=== PATIENT | female | born 1945 | race Caucasian/White ===

== ENCOUNTER 2016-11-28 16:15 | Emergency (ER) | payer OTHER ==
[~2016-11-28] VITALS: Ht 167.6 cm; Wt 71.0 kg
[~2016-11-28 16:15] MED LIST: AMITRIPTYLINE H10 M1 NG; AMLODIPINE BESY10 MG PO; APRESOLINE100 MG PO; APRESOLINE25 MG PO; ASPIR 8181 M1 PO; AZITHROMYCIN250 MG PO; CARDIZEM PO; CATAPRES0.1 MG G-TUBE; CATAPRES0.2 MG PO; CIPROFLOXACIN500 M1 PO; CLONIDINE HCL0.1 MG; CLONIDINE HCL0.1 MG PO; COZAAR50 MG PO; CYCLOBENZAPRINE10 MG PO; DURAGESIC12 MCG TD; ELAVIL10 MG PO; GABAPENTIN300 MG PO; HYDRALAZINE HCL50 MG PO; K-DUR20 MEQ PO; LISINOPRIL20 MG PO; METOCLOPRAMIDE10 MG PO; METRONIDAZOLE500 MG PO; MOTRIN800 MG PO; NIFEDIAC CC90 MG PO; NORVASC10 MG PO; NORVASC5 MG PO; OMEPRAZOLE20 MG PO; OMEPRAZOLE40 M1 PO; ONDANSETRON HCL4 MG PO; OXYCODONE HCL10 MG PO; OXYCONTIN20 MG PO; PERCOCET 10/1 TABLET; PRAVACHOL40 MG PO; PRINIVIL10 MG PO; PRINIVIL20 MG; PRINIVIL20 MG PO; REPAN 50-325-41 EAC1 PO; SIMVASTATIN80 M1 PO; TESSALON PERLE100 MG PO; TRICOR145 MG PO; TYLENOL EXTRA500 MG PO; ZESTRIL,PRINIVI20 MG PO; ZOFRAN4 MG PO; ZUPLENZ4 MG PO
[2016-11-28] MEDS ORDERED: ZOFRAN4 MG PO (16:58)
[2016-11-28] MEDS ORDERED: NEURONTIN300 MG PO (17:00)
[2016-11-28 18:24] LABS: HEMATOCRIT 36.8 % (36.0-46.0); MCH 29.4 PG (29.0-34.0); MCHC 32.6 G/DL (30.0-36.0); MCV 90.2 FL (83-99); MEAN PLAT.VOLUME 10.4 uM^3 (9.5-12.4); PLATELET COUNT 131 K/uL (156-360); RBC DIS.WIDTH-CV 14.4 % (11.8-14.6); RED BLOOD COUNT 4.08 M/uL (3.80-5.20); WHITE BLOOD COUNT 7.7 K/uL (4.1-10.2)
[2016-11-28 18:35] LABS: CHLORIDE 108 mEq/L (99-109); POTASSIUM 4.1 mEq/L (3.7-5.4); SODIUM 139 mEq/L (136-147)
[2016-11-28 18:37] LABS: GLUCOSE 109 mg/dL (70-99); INTER. NORMALIZED RATIO 1.1; PROTHROMBIN TIME 11.4 (9.2-11.2); PTT 30.8 (25-32)
[2016-11-28 18:38] LABS: ANION GAP 5 MEQ/L (2-14)
[2016-11-28 18:41] LABS: GFR ESTIMATE (CALCULATED) 58 mL/min/; UREA NITROGEN (BUN) 12 mg/dL (9-23)
[2016-11-28] MEDS ORDERED: ULTRAM50 MG PO (19:47)
[2016-11-28 20:11] VITALS: BP 145/85
== END 2016-11-28 20:18 | disposition home or self-care (01) ==
LOC: EME 16:15
PROVIDERS: Emergency Medicine
PROC: 2W3QX1Z Immobilization of Right Lower Leg using Splint (ICD-10-PCS; principal; 2016-11-28)
DX: M79.661 Pain in right lower leg (principal); R60.0 Localized edema; Z91.81 History of falling; I10 Essential (primary) hypertension
CPT/HCPCS: 73610; 80048; 85027; 85610; 85730; 93971; 99281; 99284

== ENCOUNTER 2016-11-29 10:09 | Emergency (ER) | payer OTHER ==
[~2016-11-29] VITALS: Ht 167.6 cm; Wt 70.4 kg
[~2016-11-29 10:09] MED LIST changes: +NEURONTIN300 MG PO; +ULTRAM50 MG PO
[2016-11-29 17:05] VITALS: BP 200/98
== END 2016-11-29 17:05 | disposition home or self-care (01) ==
LOC: EME 10:09 → RME 10:09
DX: M79.604 Pain in right leg (principal); I10 Essential (primary) hypertension; W18.30XD Fall on same level, unspecified, subsequent encounter; Z88.6 Allergy status to analgesic agent; Z88.0 Allergy status to penicillin
CPT/HCPCS: 73700; 99281; 99284

== ENCOUNTER 2017-06-09 11:08 | Inpatient (IN) | payer OTHER ==
[~2017-06-09] VITALS: Ht 167.6 cm; Wt 74.5 kg
[~2017-06-09 11:08] MED LIST changes: -OMEPRAZOLE40 M1 PO
[2017-06-09 12:28] LABS: EOSINOPHIL (%) 0.5 % (0-5); EOSINOPHIL COUNT 0.1 K/uL (0-0.3); HEMATOCRIT 44.3 % (36.0-46.0); IMMATURE GRANULOCYTE (%) 0.5 % (0.0-0.7); IMMATURE GRANULOCYTE COUNT 0.1 K/uL; MCH 28.4 PG (29.0-34.0); MCHC 31.8 G/DL (30.0-36.0); MCV 89.3 FL (83-99); MEAN PLAT.VOLUME 10.1 uM^3 (9.5-12.4); MONOCYTE (%) 9.3 % (3-12); NEUTROPHIL (%) 71.4 % (45-76); PLATELET COUNT 235 K/uL (156-360); RBC DIS.WIDTH-CV 14.9 % (11.8-14.6); RBC DIS.WIDTH-SD 48.8 % (39-53); RED BLOOD COUNT 4.96 M/uL (3.80-5.20); WHITE BLOOD COUNT 11.1 K/uL (4.1-10.2)
[2017-06-09 12:37] LABS: CHLORIDE 102 mEq/L (99-109); POTASSIUM 5.1 mEq/L (3.7-5.4); SODIUM 137 mEq/L (136-147)
[2017-06-09 12:38] LABS: GLUCOSE 109 mg/dL (70-99)
[2017-06-09 12:40] LABS: ANION GAP 11 MEQ/L (2-14)
[2017-06-09 12:42] LABS: GFR ESTIMATE (CALCULATED) 19 mL/min/
[2017-06-09 12:43] LABS: UREA NITROGEN (BUN) 54 mg/dL (9-23)
[2017-06-09 15:19] LABS: TROP-I INTERPRETATION NEGATIVE; TROPONIN-I < 0.01 ng/mL (0.0-0.30)
[2017-06-09] MEDS ORDERED: OXYCODONE HCL10 MG PO (15:25)
[2017-06-09] MEDS ORDERED: APRESOLINE50 MG PO (15:36)
[2017-06-09] MEDS ORDERED: OMEPRAZOLE40 M1 PO (15:36)
[2017-06-09 17:33] LABS: TOTAL CK 4601 IU/L (1-294)
[2017-06-09 17:35] LABS: CREATINE KINASE 4601 IU/L (1-294)
[2017-06-09 17:59] LABS: CK-MB 9.3 ng/mL (0.0-4.9)
[2017-06-09 18:08] VITALS: BP 181/79
[2017-06-09 20:31] LABS: ADD MIUA? YES; BILIRUBIN NEGATIVE; BLOOD MODERATE; COLOR YELLOW ((YELLOW)); GLUCOSE (STRIP) NEGATIVE; KETONES NEGATIVE; LEUKOCYTES MODERATE; NITRITE NEGATIVE; PROTEIN (STRIP) NEGATIVE; SPECIFIC GRAVITY 1.014 (1.000-1.030); UROBILINOGEN 0.2 MG/DL (0.2-1.0)
[2017-06-09 20:56] LABS: RED BLOOD CELLS 0-5 /HPF (0-5); WHITE BLOOD CELLS 30-40 /HPF (0-5)
[2017-06-09 20:57] LABS: BACTERIA 3+ /HPF; CASTS NONE SEEN /LPF; CRYSTALS NONE SEEN; EPITHELIAL CELLS 1+ /HPF; MUCUS NONE SEEN /LPF
[2017-06-09 21:08] LABS: TROP-I INTERPRETATION NEGATIVE; TROPONIN-I < 0.01 ng/mL (0.0-0.30)
[2017-06-10] VITALS (8 sets, daily range): BP systolic 140–238; BP diastolic 67–102
[2017-06-10 04:28] LABS: CHLORIDE 109 mEq/L (99-109); POTASSIUM 4.8 mEq/L (3.7-5.4); SODIUM 139 mEq/L (136-147)
[2017-06-10 04:29] LABS: GLUCOSE 119 mg/dL (70-99)
[2017-06-10 04:31] LABS: ANION GAP 8 MEQ/L (2-14)
[2017-06-10 04:34] LABS: UREA NITROGEN (BUN) 33 mg/dL (9-23)
[2017-06-10 04:36] LABS: TOTAL CK 1775 IU/L (1-294)
[2017-06-10 04:38] LABS: TROP-I INTERPRETATION NEGATIVE; TROPONIN-I < 0.01 ng/mL (0.0-0.30)
[2017-06-10 04:42] LABS: CREATINE KINASE 1775 IU/L (1-294); GFR ESTIMATE (CALCULATED) 58 mL/min/
[2017-06-10 04:51] LABS: CK-MB 2.4 ng/mL (0.0-4.9)
[2017-06-11 00:39] VITALS: BP 118/57
[2017-06-11 04:20] VITALS: BP 172/78
[2017-06-11 07:35] VITALS: BP 180/80
[2017-06-11 07:53] LABS: EOSINOPHIL (%) 0.4 % (0-5); HEMATOCRIT 37.4 % (36.0-46.0); IMMATURE GRANULOCYTE (%) 0.5 % (0.0-0.7); INSTRUMENT ABS NEUTROPHIL CT 6.2 K/uL; LYMPHOCYTE COUNT 1.4 K/uL (1.0-2.8); MCH 28.1 PG (29.0-34.0); MCHC 31.8 G/DL (30.0-36.0); MCV 88.4 FL (83-99); MEAN PLAT.VOLUME 10.7 uM^3 (9.5-12.4); MONOCYTE (%) 5.7 % (3-12); MONOCYTE COUNT 0.5 K/uL (0-0.8); NEUTROPHIL COUNT 6.2 K/uL (1.8-6.4); PLATELET COUNT 236 K/uL (156-360); RBC DIS.WIDTH-CV 14.5 % (11.8-14.6); RBC DIS.WIDTH-SD 46.5 % (39-53); RED BLOOD COUNT 4.23 M/uL (3.80-5.20); WHITE BLOOD COUNT 8.1 K/uL (4.1-10.2)
[2017-06-11 08:03] LABS: ANION GAP 5 MEQ/L (2-14); CHLORIDE 111 MEQ/L (99-109); CREATINE KINASE 346 IU/L (1-294); GFR ESTIMATE (CALCULATED) > 59 mL/min/; GLUCOSE 105 mg/dL (70-99); POTASSIUM 4.8 MEQ/L (3.7-5.4); SAMPLE HEMOLYSIS CHECK 0; SAMPLE ICTERIC CHECK 0; SAMPLE LIPEMIA CHECK 0; SODIUM 141 MEQ/L (136-147); UREA NITROGEN (BUN) 18 mg/dL (9-23)
[2017-06-11 11:32] VITALS: BP 136/70
[2017-06-11 14:50] VITALS: BP 142/74
[2017-06-11 20:31] VITALS: BP 113/59
[2017-06-12 00:27] VITALS: BP 131/66
[2017-06-12 06:47] VITALS: BP 190/86
[2017-06-12 16:53] VITALS: BP 125/77
[2017-06-12 20:34] VITALS: BP 141/68
[2017-06-12 23:55] VITALS: BP 112/67
[2017-06-13 07:41] VITALS: BP 199/90
[2017-06-13] MEDS ORDERED: AMLODIPINE BESY10 MG PO (11:27)
[2017-06-13] MEDS ORDERED: OXYCODONE HCL5 MG PO (11:27)
[2017-06-13] MEDS ORDERED: APRESOLINE50 MG PO (11:27)
[2017-06-13] MEDS ORDERED: LISINOPRIL20 MG PO (11:27)
[2017-06-13] MEDS ORDERED: DOCUSATE SODIU100 MG PO (11:27)
== END 2017-06-13 16:35 | DRG 684 ==
LOC: EME 11:08 → EDOF 14:52 → 2EAST 14:52 → ENRESERV 14:55 → 2EAST 17:59
PROVIDERS: Emergency Medicine; Internal Medicine
DX: N17.9 Acute kidney failure, unspecified (principal); S92.321A Displaced fracture of second metatarsal bone, right foot, initial encounter for closed fracture; S92.331A Displaced fracture of third metatarsal bone, right foot, initial encounter for closed fracture; S92.341A Displaced fracture of fourth metatarsal bone, right foot, initial encounter for closed fracture; S82.431A Displaced oblique fracture of shaft of right fibula, initial encounter for closed fracture; T79.6XXA Traumatic ischemia of muscle, initial encounter; S82.61XA Displaced fracture of lateral malleolus of right fibula, initial encounter for closed fracture; I11.9 Hypertensive heart disease without heart failure; W19.XXXA Unspecified fall, initial encounter; M19.90 Unspecified osteoarthritis, unspecified site; I27.2 Other secondary pulmonary hypertension; E86.0 Dehydration
CPT/HCPCS: 73590; 73610; 73630; 76770; 80048; 81003; 82550; 82553; 84484; 85025; 93005; 93306; 99281; 99284; C9113; J0360; J1170; J1644; J2270; J2405; J2765; J7030; Q0169

== ENCOUNTER 2017-07-15 16:37 | Inpatient (IN) | payer OTHER ==
[~2017-07-15] VITALS: Ht 167.6 cm; Wt 70.4 kg
[~2017-07-15 16:37] MED LIST changes: +APRESOLINE50 MG PO; +DOCUSATE SODIU100 MG PO; +OMEPRAZOLE40 M1 PO; +OXYCODONE HCL5 MG PO
[2017-07-15 17:50] LABS: EOSINOPHIL (%) 1.7 % (0-5); EOSINOPHIL COUNT 0.1 K/uL (0-0.3); HEMATOCRIT 31.1 % (36.0-46.0); IMMATURE GRANULOCYTE (%) 0.3 % (0.0-0.7); INSTRUMENT ABS NEUTROPHIL CT 4.2 K/uL; LYMPHOCYTE COUNT 1.9 K/uL (1.0-2.8); MCH 28.6 PG (29.0-34.0); MCHC 32.5 G/DL (30.0-36.0); MCV 88.1 FL (83-99); MEAN PLAT.VOLUME 10.4 uM^3 (9.5-12.4); MONOCYTE COUNT 0.8 K/uL (0-0.8); NEUTROPHIL (%) 59.5 % (45-76); NEUTROPHIL COUNT 4.2 K/uL (1.8-6.4); PLATELET COUNT 250 K/uL (156-360); RBC DIS.WIDTH-SD 45.1 % (39-53); WHITE BLOOD COUNT 7.1 K/uL (4.1-10.2)
[2017-07-15 17:51] LABS: RED BLOOD COUNT 3.53 M/uL (3.80-5.20)
[2017-07-15 18:00] LABS: CHLORIDE 104 mEq/L (99-109); POTASSIUM 4.4 mEq/L (3.7-5.4); SODIUM 132 mEq/L (136-147)
[2017-07-15 18:01] LABS: MAGNESIUM 1.9 mg/dL (1.3-2.7)
[2017-07-15 18:02] LABS: GLUCOSE 119 mg/dL (70-99)
[2017-07-15 18:04] LABS: ANION GAP 4 MEQ/L (2-14); TOTAL BILIRUBIN 0.3 mg/dL (0.0-1.0)
[2017-07-15 18:06] LABS: ALKALINE PHOSPHATASE 130 IU/L (3-129); GFR ESTIMATE (CALCULATED) 58 mL/min/
[2017-07-15 18:07] LABS: UREA NITROGEN (BUN) 14 mg/dL (9-23)
[2017-07-15 18:11] LABS: TROP-I INTERPRETATION NEGATIVE; TROPONIN-I < 0.01 ng/mL (0.0-0.30)
[2017-07-15] MEDS ORDERED: APRESOLINE50 MG PO (21:11)
[2017-07-15] MEDS ORDERED: OXYCODONE HCL10 MG PO (21:12)
[2017-07-16] VITALS (8 sets, daily range): BP systolic 162–194; BP diastolic 70–91
[2017-07-16 01:53] LABS: TROP-I INTERPRETATION NEGATIVE; TROPONIN-I < 0.01 ng/mL (0.0-0.30)
[2017-07-16 05:53] LABS: HEMATOCRIT 31.3 % (36.0-46.0); MCH 28.5 PG (29.0-34.0); MCHC 32.3 G/DL (30.0-36.0); MCV 88.4 FL (83-99); MEAN PLAT.VOLUME 10.6 uM^3 (9.5-12.4); PLATELET COUNT 240 K/uL (156-360); RBC DIS.WIDTH-CV 13.8 % (11.8-14.6); RBC DIS.WIDTH-SD 44.6 % (39-53); RED BLOOD COUNT 3.54 M/uL (3.80-5.20); WHITE BLOOD COUNT 5.9 K/uL (4.1-10.2)
[2017-07-16 06:10] LABS: ALKALINE PHOSPHATASE 115 IU/L (3-129); ANION GAP 5 MEQ/L (2-14); CHLORIDE 107 MEQ/L (99-109); GFR ESTIMATE (CALCULATED) > 59 mL/min/; GLUCOSE 94 mg/dL (70-99); POTASSIUM 4.5 MEQ/L (3.7-5.4); SAMPLE HEMOLYSIS CHECK 0; SAMPLE ICTERIC CHECK 0; SAMPLE LIPEMIA CHECK 0; TOTAL BILIRUBIN 0.3 MG/DL (0.0-1.0); UREA NITROGEN (BUN) 11 mg/dL (9-23)
[2017-07-16 06:12] LABS: SODIUM 139 MEQ/L (136-147); TROP-I INTERPRETATION NEGATIVE; TROPONIN-I < 0.01 ng/mL (0.0-0.30)
[2017-07-17 03:33] VITALS: BP 163/93
[2017-07-17 07:17] VITALS: BP 174/84
[2017-07-17] MEDS ORDERED: AMLODIPINE BESYL5 MG PO ×2 (10:14→11:43)
== END 2017-07-17 14:44 | disposition home or self-care (01) | DRG 308 ==
LOC: EME 16:37 → EDOF 22:13 → ENRESERV 22:17 → EDOF 07-16 00:02 → 5WEST 07-16 00:03
PROVIDERS: Emergency Medicine; Internal Medicine
DX: R00.1 Bradycardia, unspecified (principal); K85.90 Acute pancreatitis without necrosis or infection, unspecified; N17.9 Acute kidney failure, unspecified; E87.1 Hypo-osmolality and hyponatremia; G89.29 Other chronic pain; M19.90 Unspecified osteoarthritis, unspecified site; I95.9 Hypotension, unspecified; I11.9 Hypertensive heart disease without heart failure; E78.00 Pure hypercholesterolemia, unspecified; Z91.19 Patient's noncompliance with other medical treatment and regimen; Z86.73 Personal history of transient ischemic attack (TIA), and cerebral infarction without residual deficits; S82.401D Unspecified fracture of shaft of right fibula, subsequent encounter for closed fracture with routine healing; M79.673 Pain in unspecified foot
CPT/HCPCS: 71010; 80053; 83735; 84100; 84484; 85025; 85027; 93005; 99281; 99285; G0378; J1644; J2405; J7030